=== PATIENT | male | born 1955 | race Caucasian/White ===

== ENCOUNTER 2020-12-09 11:59 | Day surgery (SDC) | payer MEDICARE, OTHER ==
[~2020-12-09] VITALS: Ht 188 cm; Wt 103.9 kg
[~2020-12-09 11:59] MED LIST: Aspirin EC81 MG PO; B-12250 MCG PO; LOSA50 PO; OMEP20ER PO
== END 2020-12-09 14:03 | disposition home or self-care (01) ==
LOC: ORSCSDS 11:59
PROVIDERS: Internal Medicine Gastroenterology
PROC: 0DB58ZX Excision of Esophagus, Via Natural or Artificial Opening Endoscopic, Diagnostic (ICD-10-PCS; principal; 2020-12-09 13:30)
DX: K22.70 Barrett's esophagus without dysplasia (principal); K21.9 Gastro-esophageal reflux disease without esophagitis; K44.9 Diaphragmatic hernia without obstruction or gangrene; I10 Essential (primary) hypertension; R73.9 Hyperglycemia, unspecified; Z79.899 Other long term (current) drug therapy; Z79.82 Long term (current) use of aspirin
CPT/HCPCS: 88305; J2704; J7120

== ENCOUNTER 2022-09-06 16:08 | Observation (INO) | payer MEDICARE ==
[~2022-09-06] VITALS: Ht 185.4 cm; Wt 117.0 kg
[2022-09-06 16:56] LABS: BASOPHILS ABSOLUTE AUTO 0.08 K/mm3 (0.00-0.23); BASOPHILS PERCENT AUTO 1 % (0-2); EOSINOPHILS ABSOLUTE AUTO 0.19 K/mm3 (0.00-0.68); EOSINOPHILS PERCENT AUTO 1 % (0-6); Hematocrit 43.4 % (37.0-53.0); Hemoglobin 14.6 g/dL (13.5-17.5); IMMATURE GRAN ABSOLUTE AUTO 0.05 K/mm3 (0.00-0.10); IMMATURE GRAN PERCENT AUTO 0 % (0-1); LYMPHOCYTES ABSOLUTE AUTO 2.19 K/mm3 (0.84-5.20); LYMPHOCYTES PERCENT AUTO 15 % (21-46); MONOCYTES ABSOLUTE AUTO 1.03 K/mm3 (0.16-1.47); MONOCYTES PERCENT AUTO 7 % (4-13); Mean Corpuscular HGB 26.8 pg (26.0-34.0); Mean Corpuscular HGB Conc 33.6 g/dL (31.5-36.5); Mean Corpuscular Volume 80 fL (80-100); Mean Platelet Volume 9.3 fL (9.1-12.4); NEUTROPHILS ABSOLUTE AUTO 10.84 K/mm3 (1.96-9.15); NEUTROPHILS PERCENT AUTO 75 % (41-73); Platelet Count 334 K/mm3 (150-400); RDW Coefficient Variation 14.8 % (11.7-14.2); RDW Standard Deviation 42.5 fL (35.1-46.3); Red Blood Cell Count 5.45 M/mm3 (4.30-5.90); White Blood Cell Count 14.38 K/mm3 (4.00-11.30)
[2022-09-06 17:13] LABS: Albumin, Blood 3.7 g/dL (3.4-5.0); Albumin/Globulin Ratio 0.9 (0.8-1.8); Bilirubin, Total 0.2 mg/dL (0.1-1.0); Calcium, Blood 9.2 mg/dL (8.5-10.1); Creatinine, Blood 1.4 mg/dL (0.60-1.20); Globulin, Blood 3.9 g/dL (2.2-4.0); Potassium, Blood 3.9 mmol/L (3.5-5.5); Total Protein, Blood 7.6 g/dL (6.4-8.2)
--- NOTE | 2022-09-06 18:00 | NUR ---
Pt. is awake in ED12 and welcomes my visit. Family members are present. Pt. is pleasant and is known to the tire and lube technician outside the hospital. Rapport is re-established and Pt. displays evidence of being a motivated Pt. Pts. spouse is a retired nurse. Prayed with Pt. and family, they each verbalized gratitude for the spiritual care visit.
[2022-09-06 20:00] LABS: Magnesium, Blood 1.9 mg/dL (1.6-2.4)
[2022-09-06 21:12] LABS: Thyroid Stimulating Hormone 5.36 uIU/mL (0.360-4.800)
--- NOTE | 2022-09-06 22:38 | NUR ---
PT ARRIVED FROM ER VIA STRETCHER. HE IS ALERT AND ORIENTED X4, ABLE TO AMBULATE FROM STRETCHER TO BED INDEPENDENTLY. PT PRESENTED TO ER W/AFIB RVR BUT WAS CARDIOVERTED AND IS NOW IN SR, BP WNL. PT DENIES ANY CHEST PAIN OR DISCOMFORT AT THIS TIME. HE IS ON ROOM AIR, LUNGS ARE CLEAR.
[2022-09-07 05:51] LABS: Bun/Creatinine Ratio 16.4 (12.0-20.0); Calcium, Blood 8.6 mg/dL (8.5-10.1); Creatinine, Blood 1.34 mg/dL (0.60-1.20); Free Thyroxine 1.08 ng/dL (0.70-1.60); Potassium, Blood 4.1 mmol/L (3.5-5.5)
--- NOTE | 2022-09-07 05:57 | NUR ---
SHIFT SUMMERY PT HAS REMAINED IN SB OVERNIGHT W/BP WNL. NO COMPLAINTS OF CHEST PAIN/PRESSURE OR SHORTNESS OF BREATH. HE HAS BEEN UP TO THE RESTROOM W/MINIMAL ASSIST. HE HAS BEEN AFEBRILE. HE IS ALERT AND ORIENTED X4. NO ACUTE CHANGES OVERNIGHT.
[2022-09-07] MEDS ORDERED: ELIQUIS5 M2 PO (13:43)
--- NOTE | 2022-09-07 14:00 | NUR ---
Pt. is awake in bed and welcomes my visit. Spouse is presant. Pt. is pleasant and rapport is quickly re-established. Pt. displays evidence of being engaged and aware of his diagnosis, and verbalized a committment to follow through on his plan of care. Dr. Henao visited to release Pt. for discharge, as did PCU Charge nurse. Pt. and spouse verbalized gratitude for the spiritual care visits yesterday in the ED and today.
--- NOTE | 2022-09-07 14:27 | NUR ---
SHIFT SUMMARY/DISCHARGE PT A/O X4, PLEASANT AND COOPERATIVE. INDEPENDENT IN THE ROOM. AT BEDSIDE. PT HR IN THE 60'S, SINUS RHYTHM. PT ASYMPTOMATIC. ON RA, SPO2 >92% OR GREATER. ECHO WAS COMPLETED, SHOWED NO ACUTE CONCERNS. PT DISCHARGED @ APPROX 1400. PT REQUESTED TO WALK OUT OF ROOM. ACCOMPANIED BY .
== END 2022-09-07 14:00 | disposition home or self-care (01) ==
LOC: ER 16:08 → PCU 16:09
PROVIDERS: Emergency Medicine; Physician Assistant; ADMIT Internal Medicine
DX: I48.91 Unspecified atrial fibrillation (principal); I10 Essential (primary) hypertension; R77.8 Other specified abnormalities of plasma proteins; D72.829 Elevated white blood cell count, unspecified; Z79.01 Long term (current) use of anticoagulants; N17.9 Acute kidney failure, unspecified
CPT/HCPCS: 36415; 71046; 80048; 80053; 83735; 83880; 84439; 84443; 84484; 85025; 92960; 93005; 93010; 93306; 99152; 99285-25; A9270; G0378; J7030

== ENCOUNTER 2024-07-26 16:58 | Emergency (ER) | payer OTHER ==
[~2024-07-26] VITALS: Ht 185.4 cm; Wt 102.1 kg
[~2024-07-26 16:58] MED LIST changes: +ELIQUIS5 M2 PO
[2024-07-26 17:08] VITALS: BP 149/93
[2024-07-26] MEDS ORDERED: Diphth,Pertuss(Acell),Tet Vac 0.5 ML VIAL IM ONE (17:15)
== END 2024-07-26 17:59 | disposition home or self-care (01) ==
LOC: ER 16:58
DX: S61.012A Laceration without foreign body of left thumb without damage to nail, initial encounter (principal); I10 Essential (primary) hypertension; W26.0XXA Contact with knife, initial encounter
CPT/HCPCS: 90471; 90715; 99283-25